=== PATIENT | female | born 1955 | race Caucasian/White ===

== ENCOUNTER → 2018-04-17 | Outpatient (CLI) | payer OTHER | END | disposition home or self-care (01) | LOC: CFH 10:01 | PROVIDERS: ATTEND Internal Medicine | DX: J43.2 Centrilobular emphysema (principal) | CPT/HCPCS: 71250 ==

== ENCOUNTER 2019-07-24 11:03 | Inpatient (IN) | payer OTHER ==
[~2019-07-24] VITALS: Ht 160 cm; Wt 58.5 kg
[2019-07-24] MEDS ORDERED: SODIUM CHLORIDE 0.9% 1,000ML IVBOLUS ONE (11:30)
[2019-07-24] MEDS ORDERED: ASPIRIN 81 MG TABLET CHEW PO ONE (11:30)
[2019-07-24] MEDS ORDERED: ADENOSINE 6 MG/2 ML IVPush ONE (11:30)
[2019-07-24] MEDS ORDERED: SODIUM CHLORIDE FLUSH 10ML SYR IVF ONE (11:30)
[2019-07-24] MEDS ORDERED: DILTIAZEM 5 MG/ML, 5ML ONE ×2 (11:34→13:40)
[2019-07-24] MEDS ORDERED: ASPIRIN 81 MG TABLET CHEW ONE (11:38)
[2019-07-24 11:51] LABS: BASOPHILS # (AUTO) 0.03 x10^3/uL (0-0.1); BASOPHILS % (AUTO) 0 % (0-1); EOSINOPHILS # (AUTO) 0.03 x10^3/uL (0-0.4); EOSINOPHILS % (AUTO) 0 % (1-7); LYMPHOCYTES # (AUTO) 0.64 x10^3/uL (1-3.4); LYMPHOCYTES % (AUTO) 9 % (22-44); MD NO; MEAN CORPUSCULAR HGB CONC 33.4 g/dL (32.4-35.8); MEAN CORPUSCULAR VOLUME 101.9 fL (80-100); MEAN PLATELET VOLUME 8.9 fL (7.4-10.4); MONOCYTES # (AUTO) 0.49 x10^3/uL (0.2-0.8); MONOCYTES % (AUTO) 7 % (2-9); NEUTROPHILS # (AUTO) 5.74 x10^3/uL (1.8-6.8); NEUTROPHILS % (AUTO) 83 % (42-75); PLATELET COUNT 186 x10^3/uL (130-400); RED BLOOD COUNT 4.94 x10^6/uL (3.82-5.3); RED CELL DISTRIBUTION WIDTH 13.9 % (9.6-15.2)
--- NOTE | 2019-07-24 11:52 | NUR ---
THIS IS A 64 YO F SENT FROM PRIMARY CARE FOR SOB AND BILATERAL LOWER LEG SWEELING. PATIENT IS ON 3L OF OXYGEN WHICH IS WHAT SHE WEARS AT HOME. RESPIRATIONS ARE EVEN AND UNLABORED. PATIENT IS IN NO ACUTE DISTRESS. PATIENT PLACED ON MONITORS. RESTING ON GURNEY WITH CALL LIGHT IN REACH. DENIES FURTHER NEEDS AT THIS TIME.
[2019-07-24] MEDS ORDERED: HEPARIN 5,000 UNITS/ML, 1ML ONE (11:58)
[2019-07-24] MEDS ORDERED: HEPARIN 25,000 UNITS/500ML PMX 500 ML ONE (11:59)
[2019-07-24] MEDS ORDERED: HEPARIN 5,000 UNITS/ML, 1ML IV ONE (12:00)
[2019-07-24] MEDS ORDERED: HEPARIN 5,000 UNITS/ML, 1ML IV PRN (12:00)
[2019-07-24] MEDS ORDERED: DILTIAZEM 5 MG/ML, 5ML IVPush ONE ×2 (12:00→14:00)
[2019-07-24] MEDS ORDERED: HEPARIN 25,000 UNITS/500ML PMX 500 ML IV PRN ×2 (12:00→16:30)
[2019-07-24] MEDS ORDERED: DIGOXIN 0.25 MG/ML, 2ML IVPush ONE (12:00)
[2019-07-24] MEDS ORDERED: DILTIAZEM 125 MG in SODIUM CHLORIDE 0.9% 100 ML IV SCH ×2 (12:01→15:30)
[2019-07-24 12:07] LABS: ALBUMIN 3.5 g/dL (3.4-5.0); ANION GAP 8 mmol/L (5-15); CHLORIDE 93 mmol/L (98-107)
[2019-07-24 12:09] LABS: ALANINE AMINOTRANSFERASE 40 U/L (12-78); CREATININE 0.75 mg/dL (0.55-1.02)
[2019-07-24 12:14] LABS: ALKALINE PHOSPHATASE 71 U/L (45-117); BILIRUBIN,TOTAL 1.1 mg/dL (0.2-1.0); T4 (THYROXINE) 11.5 mcg/dL (4.8-13.9); TOTAL PROTEIN 7.3 g/dL (6.4-8.2); TROPONIN I 0.033 ng/mL (0.000-0.045)
[2019-07-24] MEDS ORDERED: FUROSEMIDE 40 MG/4 ML ONE (12:16)
[2019-07-24] MEDS ORDERED: ALBUTEROL/IPRATROPIUM 2.5MG/0.5MG, 3 ML NPPB ONE (12:30)
[2019-07-24] MEDS ORDERED: FUROSEMIDE 40 MG/4 ML IV ONE (12:30)
--- NOTE | 2019-07-24 12:32 | NUR ---
TASK R: PT DICATED PER MAR. PT TOLERATED WELL.
--- NOTE | 2019-07-24 12:59 | NUR ---
TASK RN NOTE: PT ASSISTED TO VOID WITH BSC, NOW BACK IN BED. ALL MONITORS IN PLACE. PT A&O, RESPS EVEN AND UNLABORED. PT DENIES PAIN. RT AT BEDSIDE FOR TX.
--- NOTE | 2019-07-24 13:45 | NUR ---
TASK RN NOTE: PT UP TO [facility] [place] TO [place]ID, BACK IN BED, ALL MONITORS MAINTAINED. PT'S HR IS 150'S AFIB (SUSTAINED) AFTER SECOND TRIP TO [facility] [place]. MD TO INFORMED. INFORMED DILTIAZEM DRIP HAS NOT BEEN INITIATED YET. ORDERED 20 MG DILTIAZEM IV PUSH, AND INSTRUCTED RN TO START DILTIAZEM DRIP AFTER IV PUSH DOSE. DILTIAZEM DRIP REQUESTED FROM PHARMACY. DILTIAZEM PUSH DOSE ADMINISTERED SLOWLY OVER 5 MIN THROUGH PIV TO RIGHT FOREARM. PT A&O, RESPS EVEN, MILDLY LABORED. PT DENIES PAIN. HEPARIN GTT RUNNING AT 700U/HR THROUGH PIV IN LEFT AC. Addendum: 07/24/19 at 1349 by USHA TASK RN NOTE: PT UP TO [facility] AGAIN TO VOID, BACK IN BED, ALL MONITORS MAINTAINED. PT'S HR IS 150'S AFIB (SUSTAINED) AFTER SECOND TRIP TO [facility] [place]. MD TO INFORMED. INFORMED DILTIAZEM DRIP HAS NOT BEEN INITIATED YET. ORDERED 20 MG DILTIAZEM IV PUSH, AND INSTRUCTED RN TO START DILTIAZEM DRIP AFTER IV PUSH DOSE. DILTIAZEM DRIP REQUESTED FROM PHARMACY. DILTIAZEM PUSH DOSE ADMINISTERED SLOWLY OVER 5 MIN THROUGH PIV TO RIGHT FOREARM. PT A&O, RESPS EVEN, MILDLY LABORED. MD TO AT BEDSIDE, FAMILY AT BEDSIDE. PT DENIES PAIN. HEPARIN GTT RUNNING AT 700U/HR THROUGH PIV IN LEFT AC.
--- NOTE | 2019-07-24 13:50 | NUR ---
late entry d/t patient care: report given to primary RNs Patrick.
--- NOTE | 2019-07-24 14:30 | NUR ---
break RN note: report received from LENI Tabor. pt resting on gurney, resps even and unlabored. pt denies pain. pt states she has been sob for weeks, states she does not feel much improvement since arrival but does not feel any worse. pt able to speak in full sentences without difficulty. pt is afib rate 90's on dish maker, no ectopy noted. diltiazem gtt running at 10mg/hr, started by LENI Tabor prior to lunch break. heparin drip infusing at 700U/hr (starting rate). call light in reach. all monitors in place. awaiting admit room assingment and dispo at this time.
[2019-07-24] MEDS ORDERED: MULTIVITAMIN PO (14:51)
[2019-07-24] MEDS ORDERED: ALBUTEROL INHALER INH (14:51)
[2019-07-24] MEDS ORDERED: FLUOXETINE PO (14:51)
[2019-07-24] MEDS ORDERED: POTASSIUM PO (14:51)
[2019-07-24] MEDS ORDERED: ENALAPRIL PO (14:51)
[2019-07-24] MEDS ORDERED: TRILOGY INHALER INH (14:51)
[2019-07-24] MEDS ORDERED: VERAPAMIL PO (14:51)
[2019-07-24] MEDS ORDERED: OMEPRAZOLE PO (14:51)
[2019-07-24] MEDS ORDERED: IRON PO (14:51)
[2019-07-24] MEDS ORDERED: LASIX PO (14:51)
--- NOTE | 2019-07-24 15:05 | NUR ---
report given to primary RN Ivy. hospitalist Baldomero at bedside speaking with patient and family. pt is afib, rate 80-90s on telemetry monitor. leydi. pt gave this RN list of home meds but could not remember exact doseages. list of home meds with doseages obtained from pt's pharmacy ([facility] on [facility]), list given to primary LENI Haynes and hospitalist Baldomero. pt awaiting cardiac tele bed assignment and transport at this time.
[2019-07-24] MEDS ORDERED: ALBU18HF INH (15:12)
[2019-07-24] MEDS ORDERED: ESTR1TAB15 PO (15:12)
--- NOTE | 2019-07-24 15:14 | NUR ---
PATIENT PLACED ON BED LOPEZ.
[2019-07-24] MEDS ORDERED: ENALAPRILAT 1.25 MG/ML, 2ML IVPush PRN (15:30)
[2019-07-24] MEDS ORDERED: NICOTINE 21 MG/24 HR PATCH.TD24 TD SCH (15:30)
[2019-07-24] MEDS ORDERED: ACETAMINOPHEN 325 MG TABLET PO PRN (15:30)
[2019-07-24] MEDS ORDERED: BISACODYL 10 MG SUPP PR PRN (15:30)
[2019-07-24] MEDS ORDERED: ONDANSETRON ODT 4 MG PO PRN (15:30)
[2019-07-24] MEDS ORDERED: MAGNESIUM SULFATE PMX 4GM/100M 100 ML IV ONE (15:30)
[2019-07-24] MEDS ORDERED: ONDANSETRON 2MG/ML, 2ML IVPush PRN (15:30)
[2019-07-24] MEDS ORDERED: POLYETHYLENE GLYCOL 17 GM PACKET PO PRN (15:30)
[2019-07-24] MEDS ORDERED: DOCUSATE 100 MG CAPSULE PO PRN (15:30)
--- NOTE | 2019-07-24 15:48 | NUR ---
DIET TRAY DELIVERED.
--- NOTE | 2019-07-24 15:59 | NUR ---
REPORT GIVEN TO DENNISE FARRAR.
--- NOTE | 2019-07-24 15:59 | NUR ---
PATIENT ASSISTED ON BEDPAN
--- NOTE | 2019-07-24 16:02 | NUR ---
HR 140'S AFTER USING BEDPAN.
[2019-07-24] MEDS ORDERED: ALBUTEROL/IPRATROPIUM 2.5MG/0.5MG, 3 ML ONE (16:21)
[2019-07-24] MEDS ORDERED: ALBUTEROL SULFATE 2.5MG/0.5ML ONE (16:22)
[2019-07-24] MEDS: ALBUTEROL/IPRATROPIUM 2.5MG/0.5MG, 3 ML NPPB SCH (19:46)
[2019-07-24] MEDS: BUDESONIDE 0.5 MG/2 ML INHA INH SCH (19:46)
[2019-07-24 20:00] VITALS: BP 111/73
[2019-07-24] MEDS: methylPREDNISolone SOD SUCC 125 MG/2 ML IVPush SCH (20:02)
[2019-07-24] MEDS: HEPARIN 5,000 UNITS/ML, 1ML IV PRN (20:02)
[2019-07-24 22:20] LABS: MICROSCOPIC NOT IND
[2019-07-24 22:33] LABS: CULTURE INDICATED? NO
[2019-07-25 00:15] VITALS: BP 110/73
[2019-07-25 02:32] LABS: MEAN CORPUSCULAR HEMOGLOBIN 34.1 pg (27.0-34.8); MEAN CORPUSCULAR HGB CONC 32.7 g/dL (32.4-35.8); MEAN CORPUSCULAR VOLUME 104.2 fL (80-100); MEAN PLATELET VOLUME 8.9 fL (7.4-10.4); PLATELET COUNT 160 x10^3/uL (130-400); RED BLOOD COUNT 4.17 x10^6/uL (3.82-5.3); RED CELL DISTRIBUTION WIDTH 13.9 % (9.6-15.2)
[2019-07-25 02:42] LABS: ALANINE AMINOTRANSFERASE 32 U/L (12-78); ALBUMIN 2.8 g/dL (3.4-5.0); ANION GAP 7 mmol/L (5-15); CALCIUM 8.1 mg/dL (8.5-10.1); CHLORIDE 98 mmol/L (98-107); CREATININE 0.71 mg/dL (0.55-1.02)
[2019-07-25 02:44] LABS: ALKALINE PHOSPHATASE 58 U/L (45-117); BILIRUBIN,TOTAL 0.7 mg/dL (0.2-1.0)
[2019-07-25 02:57] LABS: BASOPHILS % (AUTO) 0 % (0-1); EOSINOPHILS % (AUTO) 0 % (1-7); LYMPHOCYTES % (AUTO) 2 % (22-44); MD SCAN; MONOCYTES # (AUTO) 0.07 x10^3/uL (0.2-0.8); MONOCYTES % (AUTO) 2 % (2-9); NEUTROPHILS # (AUTO) 3.98 x10^3/uL (1.8-6.8); NEUTROPHILS % (AUTO) 96 % (42-75)
[2019-07-25] MEDS: methylPREDNISolone SOD SUCC 125 MG/2 ML IVPush SCH ×3 (04:19→17:34)
[2019-07-25] MEDS: ALBUTEROL/IPRATROPIUM 2.5MG/0.5MG, 3 ML NPPB SCH ×4 (06:45→20:30)
[2019-07-25 07:04] VITALS: BP 145/80
[2019-07-25] MEDS: BUDESONIDE 0.5 MG/2 ML INHA INH SCH ×2 (08:40→20:30)
[2019-07-25] MEDS ORDERED: FUROSEMIDE 40 MG/4 ML IV ONE ×2 (09:30→17:30)
[2019-07-25] MEDS ORDERED: POTASSIUM CHLORIDE 20 MEQ TAB.ER.PRT PO ONE (09:30)
[2019-07-25] MEDS: OMEPRAZOLE 20 MG CAPSULE.DR PO SCH (10:25)
[2019-07-25] MEDS: DILTIAZEM 240 MG CAP.ER.24H PO SCH (10:26)
[2019-07-25] MEDS: MULTIVITAMIN 1 TABLET PO SCH (10:26)
[2019-07-25] MEDS: FLUOXETINE HCL 20 MG CAPSULE PO SCH (10:26)
[2019-07-25 13:56] VITALS: BP 128/80
[2019-07-25] MEDS ORDERED: DIPHENHYDRAMINE 25 MG CAPSULE PO PRN (15:00)
[2019-07-25] MEDS ORDERED: DIPHENHYDRAMINE 25 MG CAPSULE PO ONE (15:30)
[2019-07-25] MEDS ORDERED: FUROSEMIDE 40 MG/4 ML ONE (17:19)
[2019-07-25] MEDS ORDERED: ALBUMIN HUMAN 25% 100 ML ONE (18:16)
[2019-07-25] MEDS ORDERED: ALBUMIN HUMAN 25% 100 ML IV ONE (18:30)
[2019-07-25] MEDS: ENALAPRIL 20MG TABLET PO SCH (20:36)
[2019-07-26] MEDS: methylPREDNISolone SOD SUCC 125 MG/2 ML IVPush SCH ×4 (01:17→18:01)
[2019-07-26 04:31] LABS: MEAN CORPUSCULAR HEMOGLOBIN 34.1 pg (27.0-34.8); MEAN CORPUSCULAR HGB CONC 32.6 g/dL (32.4-35.8); MEAN CORPUSCULAR VOLUME 104.6 fL (80-100); MEAN PLATELET VOLUME 8.7 fL (7.4-10.4); PLATELET COUNT 172 x10^3/uL (130-400); RED BLOOD COUNT 4.34 x10^6/uL (3.82-5.3); RED CELL DISTRIBUTION WIDTH 14.1 % (9.6-15.2)
[2019-07-26 04:40] LABS: ANION GAP 4 mmol/L (5-15); CALCIUM 8.1 mg/dL (8.5-10.1); CHLORIDE 95 mmol/L (98-107)
[2019-07-26 04:41] LABS: CREATININE 0.62 mg/dL (0.55-1.02)
[2019-07-26 04:52] LABS: BASOPHILS # (AUTO) 0.03 x10^3/uL (0-0.1); BASOPHILS % (AUTO) 0 % (0-1); EOSINOPHILS # (AUTO) 0.07 x10^3/uL (0-0.4); EOSINOPHILS % (AUTO) 1 % (1-7); LYMPHOCYTES # (AUTO) 0.12 x10^3/uL (1-3.4); LYMPHOCYTES % (AUTO) 1 % (22-44); MD SCAN; MONOCYTES # (AUTO) 0.35 x10^3/uL (0.2-0.8); MONOCYTES % (AUTO) 3 % (2-9); NEUTROPHILS # (AUTO) 12.82 x10^3/uL (1.8-6.8); NEUTROPHILS % (AUTO) 96 % (42-75)
[2019-07-26] MEDS: HEPARIN 5,000 UNITS/ML, 1ML IV PRN (06:14)
[2019-07-26] MEDS: ALBUTEROL/IPRATROPIUM 2.5MG/0.5MG, 3 ML NPPB SCH ×5 (07:00→23:52)
[2019-07-26] MEDS: MULTIVITAMIN 1 TABLET PO SCH (08:46)
[2019-07-26] MEDS: OMEPRAZOLE 20 MG CAPSULE.DR PO SCH (08:46)
[2019-07-26] MEDS: FLUOXETINE HCL 20 MG CAPSULE PO SCH (08:46)
[2019-07-26] MEDS: DILTIAZEM 240 MG CAP.ER.24H PO SCH (08:46)
[2019-07-26] MEDS: ENALAPRIL 20MG TABLET PO SCH ×2 (08:46→20:01)
[2019-07-26] MEDS: BUDESONIDE 0.5 MG/2 ML INHA INH SCH ×2 (09:00→20:07)
[2019-07-26] MEDS ORDERED: FUROSEMIDE 40 MG/4 ML IV SCH (09:00)
[2019-07-26] MEDS: LABETALOL 5MG/ML, 20ML IVPush PRN (12:29)
[2019-07-26] MEDS ORDERED: Enoxaparin 1 mg/kg protocol SQ SCH (14:00)
[2019-07-26] MEDS ORDERED: POTASSIUM CHLORIDE 20 MEQ TAB.ER.PRT PO ONE (14:00)
[2019-07-26] MEDS: ENOXAPARIN 60 MG/0.6 ML SQ SCH (18:01)
[2019-07-26] MEDS: FUROSEMIDE 20 MG/2 ML IV SCH (20:01)
[2019-07-27] MEDS: methylPREDNISolone SOD SUCC 125 MG/2 ML IVPush SCH ×4 (01:04→18:23)
[2019-07-27] MEDS: ALBUTEROL/IPRATROPIUM 2.5MG/0.5MG, 3 ML NPPB SCH ×6 (03:00→23:00)
[2019-07-27] MEDS: ENOXAPARIN 60 MG/0.6 ML SQ SCH ×2 (06:00→20:27)
[2019-07-27] MEDS: FUROSEMIDE 20 MG/2 ML IV SCH (06:00)
[2019-07-27] MEDS: BUDESONIDE 0.5 MG/2 ML INHA INH SCH ×2 (07:35→21:00)
[2019-07-27] MEDS: MULTIVITAMIN 1 TABLET PO SCH (09:56)
[2019-07-27] MEDS: OMEPRAZOLE 20 MG CAPSULE.DR PO SCH (09:56)
[2019-07-27] MEDS: DILTIAZEM 240 MG CAP.ER.24H PO SCH (09:56)
[2019-07-27] MEDS: FLUOXETINE HCL 20 MG CAPSULE PO SCH (09:56)
[2019-07-27] MEDS: AZITHROMYCIN 500 MG TABLET PO SCH (10:00)
[2019-07-27] MEDS ORDERED: FUROSEMIDE 20 MG/2 ML ONE (10:10)
[2019-07-27] MEDS ORDERED: FUROSEMIDE 20 MG/2 ML IV ONE (10:30)
[2019-07-27] MEDS ORDERED: METOPROLOL 1 MG/ML, 5ML ONE (11:08)
[2019-07-27] MEDS: ENALAPRIL 20MG TABLET PO SCH ×2 (11:22→20:31)
[2019-07-27] MEDS ORDERED: METOPROLOL 1 MG/ML, 5ML IVPush ONE (11:30)
[2019-07-27] MEDS: FUROSEMIDE 40 MG/4 ML IV SCH (16:59)
[2019-07-27] MEDS ORDERED: FUROSEMIDE 40 MG/4 ML IV SCH (17:00)
[2019-07-27] MEDS ORDERED: METOPROLOL 1 MG/ML, 5ML IVPush PRN (18:30)
[2019-07-28] MEDS: methylPREDNISolone SOD SUCC 125 MG/2 ML IVPush SCH ×4 (00:17→21:32)
[2019-07-28] MEDS: ALBUTEROL/IPRATROPIUM 2.5MG/0.5MG, 3 ML NPPB SCH ×6 (02:27→22:32)
[2019-07-28 05:11] LABS: MEAN CORPUSCULAR HEMOGLOBIN 33.9 pg (27.0-34.8); MEAN CORPUSCULAR HGB CONC 32.2 g/dL (32.4-35.8); MEAN CORPUSCULAR VOLUME 105.4 fL (80-100); MEAN PLATELET VOLUME 9.1 fL (7.4-10.4); PLATELET COUNT 173 x10^3/uL (130-400); RED BLOOD COUNT 4.52 x10^6/uL (3.82-5.3); RED CELL DISTRIBUTION WIDTH 14.5 % (9.6-15.2)
[2019-07-28 05:16] LABS: CALCIUM 8.2 mg/dL (8.5-10.1); CHLORIDE 92 mmol/L (98-107)
[2019-07-28 05:17] LABS: CREATININE 0.58 mg/dL (0.55-1.02)
[2019-07-28 05:50] LABS: ANION GAP 3 mmol/L (5-15)
[2019-07-28 05:54] LABS: BASOPHILS % (AUTO) 0 % (0-1); EOSINOPHILS # (AUTO) 0.01 x10^3/uL (0-0.4); EOSINOPHILS % (AUTO) 0 % (1-7); LYMPHOCYTES # (AUTO) 0.07 x10^3/uL (1-3.4); LYMPHOCYTES % (AUTO) 1 % (22-44); MD SCAN; MONOCYTES # (AUTO) 0.32 x10^3/uL (0.2-0.8); MONOCYTES % (AUTO) 3 % (2-9); NEUTROPHILS # (AUTO) 9.82 x10^3/uL (1.8-6.8); NEUTROPHILS % (AUTO) 96 % (42-75)
[2019-07-28] MEDS: BUDESONIDE 0.5 MG/2 ML INHA INH SCH ×2 (07:40→19:17)
[2019-07-28] MEDS ORDERED: POTASSIUM CHLORIDE 20 MEQ TAB.ER.PRT ONE (07:48)
[2019-07-28] MEDS: POTASSIUM CHLORIDE 20 MEQ TAB.ER.PRT PO SCH ×2 (07:52→17:09)
[2019-07-28] MEDS: FUROSEMIDE 40 MG/4 ML IV SCH ×2 (07:52→17:09)
[2019-07-28] MEDS: ENOXAPARIN 60 MG/0.6 ML SQ SCH ×2 (07:52→21:32)
[2019-07-28] MEDS: AZITHROMYCIN 500 MG TABLET PO SCH (07:53)
[2019-07-28] MEDS: OMEPRAZOLE 20 MG CAPSULE.DR PO SCH (07:53)
[2019-07-28] MEDS: MULTIVITAMIN 1 TABLET PO SCH (07:53)
[2019-07-28] MEDS: ENALAPRIL 20MG TABLET PO SCH ×2 (07:53→21:33)
[2019-07-28] MEDS: DILTIAZEM 240 MG CAP.ER.24H PO SCH (07:53)
[2019-07-28] MEDS: FLUOXETINE HCL 20 MG CAPSULE PO SCH (07:53)
[2019-07-28 13:38] LABS: TROPONIN I 0.065 ng/mL (0.000-0.045)
[2019-07-29] MEDS: methylPREDNISolone SOD SUCC 125 MG/2 ML IVPush SCH ×4 (02:50→20:29)
[2019-07-29] MEDS: ALBUTEROL/IPRATROPIUM 2.5MG/0.5MG, 3 ML NPPB SCH ×6 (03:45→23:38)
[2019-07-29 04:59] LABS: CALCIUM 8.2 mg/dL (8.5-10.1); CHLORIDE 91 mmol/L (98-107); CREATININE 0.53 mg/dL (0.55-1.02)
[2019-07-29 05:16] LABS: ANION GAP 4 mmol/L (5-15)
[2019-07-29] MEDS: FUROSEMIDE 40 MG/4 ML IV SCH (07:30)
[2019-07-29] MEDS: AZITHROMYCIN 500 MG TABLET PO SCH (07:40)
[2019-07-29] MEDS: DILTIAZEM 240 MG CAP.ER.24H PO SCH (07:40)
[2019-07-29] MEDS: ENOXAPARIN 60 MG/0.6 ML SQ SCH ×2 (07:41→20:29)
[2019-07-29] MEDS: BUDESONIDE 0.5 MG/2 ML INHA INH SCH ×2 (08:06→19:11)
[2019-07-29] MEDS: LABETALOL 5MG/ML, 20ML IVPush PRN (08:27)
[2019-07-29] MEDS: POTASSIUM CHLORIDE 20 MEQ TAB.ER.PRT PO SCH ×2 (08:28→17:25)
[2019-07-29] MEDS: MULTIVITAMIN 1 TABLET PO SCH (09:41)
[2019-07-29] MEDS: OMEPRAZOLE 20 MG CAPSULE.DR PO SCH (09:41)
[2019-07-29] MEDS: FLUOXETINE HCL 20 MG CAPSULE PO SCH (09:41)
[2019-07-29] MEDS: ENALAPRIL 20MG TABLET PO SCH ×2 (09:42→20:30)
[2019-07-29] MEDS ORDERED: AcetaZOLAMIDE INJ 500 MG ONE (13:34)
[2019-07-29] MEDS ORDERED: AcetaZOLAMIDE INJ 500 MG IVPush ONE (14:00)
[2019-07-29] MEDS: AcetaZOLAMIDE INJ 500 MG IVPush SCH (20:30)
[2019-07-30] MEDS: methylPREDNISolone SOD SUCC 125 MG/2 ML IVPush SCH ×4 (02:56→20:34)
[2019-07-30] MEDS: ALBUTEROL/IPRATROPIUM 2.5MG/0.5MG, 3 ML NPPB SCH ×6 (03:49→23:00)
[2019-07-30] MEDS: BUDESONIDE 0.5 MG/2 ML INHA INH SCH ×2 (07:51→20:27)
[2019-07-30] MEDS: ENOXAPARIN 60 MG/0.6 ML SQ SCH (08:35)
[2019-07-30] MEDS: AcetaZOLAMIDE INJ 500 MG IVPush SCH (08:36)
[2019-07-30] MEDS: FLUOXETINE HCL 20 MG CAPSULE PO SCH (08:37)
[2019-07-30] MEDS: MULTIVITAMIN 1 TABLET PO SCH (08:37)
[2019-07-30] MEDS: OMEPRAZOLE 20 MG CAPSULE.DR PO SCH (08:37)
[2019-07-30] MEDS: DILTIAZEM 240 MG CAP.ER.24H PO SCH (08:37)
[2019-07-30] MEDS: ENALAPRIL 20MG TABLET PO SCH (08:40)
[2019-07-30] MEDS: AZITHROMYCIN 500 MG TABLET PO SCH (08:40)
[2019-07-30] MEDS ORDERED: AMIODARONE 150 MG in DEXTROSE 5% 100 ML IV ONE (10:30)
[2019-07-30] MEDS ORDERED: MAGNESIUM SULFATE PMX 2GM/50ML 50 ML IV ONE (10:30)
[2019-07-30] MEDS ORDERED: FILTER 0.22 MICRON IV PRN (11:00)
[2019-07-30] MEDS: AMIODARONE 900 MG in DEXTROSE 5% 482 ML IV PRN (11:05)
[2019-07-30] MEDS ORDERED: NICOTINE GUM 2 MG BC PRN (11:30)
[2019-07-30] MEDS ORDERED: FUROSEMIDE 20 MG TABLET PO SCH (17:00)
[2019-07-30] MEDS: APIXABAN 5 MG TABLET PO SCH (20:34)
[2019-07-31] MEDS: methylPREDNISolone SOD SUCC 125 MG/2 ML IVPush SCH ×4 (02:21→20:56)
[2019-07-31] MEDS ORDERED: ALBUTEROL SULFATE 2.5 MG/3 ML ONE ×2 (04:51→06:21)
[2019-07-31] MEDS: ALBUTEROL/IPRATROPIUM 2.5MG/0.5MG, 3 ML NPPB SCH ×6 (04:53→23:47)
[2019-07-31 05:27] LABS: ANION GAP 3 mmol/L (5-15); CALCIUM 8.7 mg/dL (8.5-10.1); CHLORIDE 94 mmol/L (98-107)
[2019-07-31 05:29] LABS: CREATININE 0.67 mg/dL (0.55-1.02)
[2019-07-31] MEDS ORDERED: IPRATROPIUM 0.5 MG/2.5 ML INHA ONE (06:21)
[2019-07-31] MEDS: BUDESONIDE 0.5 MG/2 ML INHA INH SCH ×2 (06:30→19:16)
[2019-07-31] MEDS: MULTIVITAMIN 1 TABLET PO SCH (08:22)
[2019-07-31] MEDS: POTASSIUM CHLORIDE 20 MEQ TAB.ER.PRT PO SCH ×2 (08:23→16:34)
[2019-07-31] MEDS: OMEPRAZOLE 20 MG CAPSULE.DR PO SCH (08:23)
[2019-07-31] MEDS: FLUOXETINE HCL 20 MG CAPSULE PO SCH (08:23)
[2019-07-31] MEDS: APIXABAN 5 MG TABLET PO SCH ×2 (08:23→20:55)
[2019-07-31] MEDS: AZITHROMYCIN 500 MG TABLET PO SCH (08:23)
[2019-07-31] MEDS ORDERED: DILTIAZEM 5 MG/ML, 5ML IVPush PRN (10:30)
[2019-07-31] MEDS: AMIODARONE 900 MG in DEXTROSE 5% 482 ML IV PRN ×2 (11:15→13:07)
[2019-07-31] MEDS: DILTIAZEM 5 MG/ML, 5ML IVPush PRN ×5 (12:19→22:11)
[2019-07-31] MEDS ORDERED: DIGOXIN 0.25 MG/ML, 2ML IVPush ONE (14:00)
[2019-08-01] MEDS: LABETALOL 20 MG/4 ML IVPush PRN ×2 (00:47→05:06)
[2019-08-01] MEDS: methylPREDNISolone SOD SUCC 125 MG/2 ML IVPush SCH ×5 (01:48→22:08)
[2019-08-01] MEDS: AMIODARONE 900 MG in DEXTROSE 5% 482 ML IV PRN ×3 (03:00→20:43)
[2019-08-01] MEDS ORDERED: FILTER 0.22 MICRON IV PRN (03:00)
[2019-08-01] MEDS: ALBUTEROL/IPRATROPIUM 2.5MG/0.5MG, 3 ML NPPB SCH ×6 (03:41→23:08)
[2019-08-01 04:35] LABS: CALCIUM 8.6 mg/dL (8.5-10.1)
[2019-08-01 04:36] LABS: CREATININE 0.58 mg/dL (0.55-1.02)
[2019-08-01 04:57] LABS: ANION GAP 2 mmol/L (5-15); CHLORIDE 97 mmol/L (98-107)
[2019-08-01] MEDS: BUDESONIDE 0.5 MG/2 ML INHA INH SCH ×2 (07:10→19:04)
[2019-08-01] MEDS: OMEPRAZOLE 20 MG CAPSULE.DR PO SCH (07:56)
[2019-08-01] MEDS: APIXABAN 5 MG TABLET PO SCH ×2 (07:56→20:34)
[2019-08-01] MEDS: FLUOXETINE HCL 20 MG CAPSULE PO SCH (07:56)
[2019-08-01] MEDS: AZITHROMYCIN 500 MG TABLET PO SCH (07:56)
[2019-08-01] MEDS: MULTIVITAMIN 1 TABLET PO SCH (07:56)
[2019-08-01] MEDS: DILTIAZEM 30 MG TABLET PO SCH ×3 (10:23→22:08)
[2019-08-01] MEDS ORDERED: AMIODARONE 900 MG in DEXTROSE 5% 482 ML IV PRN (10:30)
[2019-08-01] MEDS ORDERED: DILTIAZEM 5 MG/ML, 5ML IVPush PRN ×2 (16:00→18:00)
[2019-08-01] MEDS: FUROSEMIDE 20 MG/2 ML IV SCH (17:49)
[2019-08-01 19:26] VITALS: BP 143/98
[2019-08-01] MEDS ORDERED: ENALAPRILAT 1.25 MG/ML, 1ML ONE (22:31)
[2019-08-02 01:19] VITALS: BP 140/89
[2019-08-02] MEDS: ALBUTEROL/IPRATROPIUM 2.5MG/0.5MG, 3 ML NPPB SCH ×6 (02:46→19:23)
[2019-08-02] MEDS: DILTIAZEM 30 MG TABLET PO SCH (04:07)
[2019-08-02] MEDS: methylPREDNISolone SOD SUCC 125 MG/2 ML IVPush SCH ×4 (04:07→21:25)
[2019-08-02 06:08] LABS: BASOPHILS % (AUTO) 0 % (0-1); EOSINOPHILS # (AUTO) 0.02 x10^3/uL (0-0.4); EOSINOPHILS % (AUTO) 0 % (1-7); LYMPHOCYTES # (AUTO) 0.17 x10^3/uL (1-3.4); LYMPHOCYTES % (AUTO) 1 % (22-44); MD NO; MEAN CORPUSCULAR HEMOGLOBIN 33.6 pg (27.0-34.8); MEAN CORPUSCULAR HGB CONC 32.7 g/dL (32.4-35.8); MONOCYTES # (AUTO) 0.48 x10^3/uL (0.2-0.8); MONOCYTES % (AUTO) 4 % (2-9); NEUTROPHILS # (AUTO) 11.16 x10^3/uL (1.8-6.8); NEUTROPHILS % (AUTO) 94 % (42-75); PLATELET COUNT 177 x10^3/uL (130-400); RED BLOOD COUNT 4.99 x10^6/uL (3.82-5.3)
[2019-08-02 06:14] LABS: ANION GAP 5 mmol/L (5-15); CALCIUM 8.5 mg/dL (8.5-10.1); CHLORIDE 92 mmol/L (98-107)
[2019-08-02 06:19] LABS: CREATININE 0.77 mg/dL (0.55-1.02)
[2019-08-02] MEDS: BUDESONIDE 0.5 MG/2 ML INHA INH SCH ×2 (07:36→18:34)
[2019-08-02 08:15] VITALS: BP 149/102
[2019-08-02] MEDS: MULTIVITAMIN 1 TABLET PO SCH (08:56)
[2019-08-02] MEDS: AZITHROMYCIN 500 MG TABLET PO SCH (08:56)
[2019-08-02] MEDS: APIXABAN 5 MG TABLET PO SCH ×2 (08:56→21:25)
[2019-08-02] MEDS: FUROSEMIDE 20 MG/2 ML IV SCH ×2 (08:56→17:00)
[2019-08-02] MEDS: OMEPRAZOLE 20 MG CAPSULE.DR PO SCH (08:56)
[2019-08-02] MEDS: FLUOXETINE HCL 20 MG CAPSULE PO SCH (08:56)
[2019-08-02] MEDS ORDERED: FUROSEMIDE 20 MG/2 ML IV ONE (09:30)
[2019-08-02] MEDS: DILTIAZEM 125 MG in SODIUM CHLORIDE 0.9% 100 ML IV SCH (11:28)
[2019-08-02 12:43] VITALS: BP 135/93
[2019-08-02 18:48] VITALS: BP 149/88
[2019-08-03 00:30] VITALS: BP 149/95
[2019-08-03] MEDS: DILTIAZEM 125 MG in SODIUM CHLORIDE 0.9% 100 ML IV SCH ×3 (04:22→22:24)
[2019-08-03] MEDS: methylPREDNISolone SOD SUCC 125 MG/2 ML IVPush SCH ×4 (04:45→21:41)
[2019-08-03 05:38] LABS: BASOPHILS % (AUTO) 0 % (0-1); EOSINOPHILS % (AUTO) 0 % (1-7); LYMPHOCYTES # (AUTO) 0.18 x10^3/uL (1-3.4); LYMPHOCYTES % (AUTO) 2 % (22-44); MD NO; MEAN CORPUSCULAR HGB CONC 32.4 g/dL (32.4-35.8); MEAN CORPUSCULAR VOLUME 101.7 fL (80-100); MEAN PLATELET VOLUME 9.4 fL (7.4-10.4); MONOCYTES % (AUTO) 6 % (2-9); NEUTROPHILS # (AUTO) 11.36 x10^3/uL (1.8-6.8); NEUTROPHILS % (AUTO) 93 % (42-75); PLATELET COUNT 172 x10^3/uL (130-400); RED BLOOD COUNT 4.91 x10^6/uL (3.82-5.3); RED CELL DISTRIBUTION WIDTH 13.8 % (9.6-15.2)
[2019-08-03 05:43] LABS: CALCIUM 8.4 mg/dL (8.5-10.1); CHLORIDE 91 mmol/L (98-107)
[2019-08-03 05:46] LABS: ALANINE AMINOTRANSFERASE 73 U/L (12-78); ALKALINE PHOSPHATASE 49 U/L (45-117); BILIRUBIN,TOTAL 1.4 mg/dL (0.2-1.0); TOTAL PROTEIN 5.6 g/dL (6.4-8.2)
[2019-08-03 06:09] LABS: ANION GAP 2 mmol/L (5-15)
[2019-08-03] MEDS: ALBUTEROL/IPRATROPIUM 2.5MG/0.5MG, 3 ML NPPB SCH ×4 (07:00→19:12)
[2019-08-03 07:40] VITALS: BP 162/88
[2019-08-03] MEDS: BUDESONIDE 0.5 MG/2 ML INHA INH SCH ×2 (09:00→19:12)
[2019-08-03] MEDS: FUROSEMIDE 20 MG/2 ML IV SCH ×2 (09:09→17:39)
[2019-08-03] MEDS: OMEPRAZOLE 20 MG CAPSULE.DR PO SCH (09:09)
[2019-08-03] MEDS: AZITHROMYCIN 500 MG TABLET PO SCH (09:09)
[2019-08-03] MEDS: MULTIVITAMIN 1 TABLET PO SCH (09:09)
[2019-08-03] MEDS: APIXABAN 5 MG TABLET PO SCH ×2 (09:09→21:41)
[2019-08-03] MEDS: FLUOXETINE HCL 20 MG CAPSULE PO SCH (09:09)
[2019-08-03 14:00] VITALS: BP 152/88
[2019-08-03 19:50] VITALS: BP 133/81
[2019-08-04 00:17] VITALS: BP 146/93
[2019-08-04] MEDS: methylPREDNISolone SOD SUCC 125 MG/2 ML IVPush SCH ×4 (03:46→21:10)
[2019-08-04] MEDS: BUDESONIDE 0.5 MG/2 ML INHA INH SCH ×2 (07:35→08:00)
[2019-08-04] MEDS: ALBUTEROL/IPRATROPIUM 2.5MG/0.5MG, 3 ML NPPB SCH ×2 (07:35→08:00)
[2019-08-04] MEDS: OMEPRAZOLE 20 MG CAPSULE.DR PO SCH (10:03)
[2019-08-04] MEDS: MULTIVITAMIN 1 TABLET PO SCH (10:03)
[2019-08-04] MEDS: FLUOXETINE HCL 20 MG CAPSULE PO SCH (10:03)
[2019-08-04] MEDS: FUROSEMIDE 20 MG/2 ML IV SCH ×2 (10:04→17:30)
[2019-08-04] MEDS: AZITHROMYCIN 500 MG TABLET PO SCH (10:04)
[2019-08-04] MEDS: APIXABAN 5 MG TABLET PO SCH ×2 (10:04→21:10)
[2019-08-04] MEDS: DILTIAZEM 90 MG TABLET PO SCH ×4 (10:23→21:10)
[2019-08-04 10:47] LABS: MEAN CORPUSCULAR HEMOGLOBIN 33.2 pg (27.0-34.8); MEAN CORPUSCULAR HGB CONC 32.8 g/dL (32.4-35.8); MEAN CORPUSCULAR VOLUME 101.2 fL (80-100); MEAN PLATELET VOLUME 9.4 fL (7.4-10.4); PLATELET COUNT 172 x10^3/uL (130-400); RED BLOOD COUNT 5.02 x10^6/uL (3.82-5.3); RED CELL DISTRIBUTION WIDTH 13.7 % (9.6-15.2)
[2019-08-04 10:51] LABS: ANION GAP 7 mmol/L (5-15); CHLORIDE 85 mmol/L (98-107); CREATININE 0.75 mg/dL (0.55-1.02)
[2019-08-04 11:45] LABS: BASOPHILS # (AUTO) 0.01 x10^3/uL (0-0.1); BASOPHILS % (AUTO) 0 % (0-1); EOSINOPHILS % (AUTO) 0 % (1-7); LYMPHOCYTES # (AUTO) 0.17 x10^3/uL (1-3.4); LYMPHOCYTES % (AUTO) 1 % (22-44); MD SCAN; MONOCYTES # (AUTO) 0.34 x10^3/uL (0.2-0.8); MONOCYTES % (AUTO) 2 % (2-9); NEUTROPHILS # (AUTO) 14.06 x10^3/uL (1.8-6.8); NEUTROPHILS % (AUTO) 96 % (42-75)
[2019-08-04 14:57] VITALS: BP 147/68
[2019-08-04 18:42] VITALS: BP 133/72
[2019-08-04] MEDS: DILTIAZEM 125 MG in SODIUM CHLORIDE 0.9% 100 ML IV SCH ×2 (22:00→23:30)
[2019-08-05] MEDS: methylPREDNISolone SOD SUCC 125 MG/2 ML IVPush SCH ×2 (05:22→11:59)
[2019-08-05] MEDS: DILTIAZEM 90 MG TABLET PO SCH ×2 (05:23→12:00)
[2019-08-05 07:24] VITALS: BP 149/86
[2019-08-05] MEDS: ALBUTEROL/IPRATROPIUM 2.5MG/0.5MG, 3 ML NPPB SCH (07:35)
[2019-08-05] MEDS: BUDESONIDE 0.5 MG/2 ML INHA INH SCH (07:35)
[2019-08-05] MEDS: OMEPRAZOLE 20 MG CAPSULE.DR PO SCH (09:09)
[2019-08-05] MEDS: MULTIVITAMIN 1 TABLET PO SCH (09:09)
[2019-08-05] MEDS: FLUOXETINE HCL 20 MG CAPSULE PO SCH (09:09)
[2019-08-05] MEDS: APIXABAN 5 MG TABLET PO SCH (09:10)
[2019-08-05] MEDS: FUROSEMIDE 20 MG/2 ML IV SCH (09:10)
[2019-08-05] MEDS: AZITHROMYCIN 500 MG TABLET PO SCH (09:10)
[2019-08-05] MEDS ORDERED: PRED10TA14 PO (09:45)
[2019-08-05] MEDS ORDERED: FURO-92 PO (09:45)
[2019-08-05] MEDS ORDERED: FLUT1DIS3 INH (09:45)
[2019-08-05] MEDS ORDERED: POTA20TA6 PO (09:45)
[2019-08-05] MEDS ORDERED: TIOT18CA INH (09:45)
[2019-08-05] MEDS ORDERED: IPRA3AMP30 NPPB (09:45)
[2019-08-05] MEDS ORDERED: DILT360T PO (09:45)
[2019-08-05] MEDS ORDERED: NICO2GUM41 BC (09:45)
[2019-08-05] MEDS ORDERED: APIX5TAB PO (09:45)
[2019-08-05] MEDS: DILTIAZEM 125 MG in SODIUM CHLORIDE 0.9% 100 ML IV SCH (12:03)
[2019-08-05 13:57] VITALS: BP 144/83
== END 2019-08-05 16:00 | disposition left against medical advice (07) | DRG 291 ==
LOC: ED 13:22 → EDIP 14:43 → 5SO 16:13 → CSU 07-25 17:11 → ICU 07-27 07:41 → 5SO 08-01 16:48 → DCLOUNGE 08-05 15:45
PROVIDERS: ADMIT Internal Medicine; ATTEND Internal Medicine
PROC: 5A09357 Assistance with Respiratory Ventilation, Less than 24 Consecutive Hours, Continuous Positive Airway Pressure (ICD-10-PCS; principal; 2019-07-29)
PROC: 5A09357 Assistance with Respiratory Ventilation, Less than 24 Consecutive Hours, Continuous Positive Airway Pressure (ICD-10-PCS; 2019-07-31)
DX: I11.0 Hypertensive heart disease with heart failure (principal); J96.21 Acute and chronic respiratory failure with hypoxia; J96.22 Acute and chronic respiratory failure with hypercapnia; E87.1 Hypo-osmolality and hyponatremia; E87.2 Acidosis; I24.8 Other forms of acute ischemic heart disease; D75.1 Secondary polycythemia; I50.33 Acute on chronic diastolic (congestive) heart failure; E83.42 Hypomagnesemia; E87.6 Hypokalemia; F17.210 Nicotine dependence, cigarettes, uncomplicated; I08.1 Rheumatic disorders of both mitral and tricuspid valves; I27.29 Other secondary pulmonary hypertension; I27.81 Cor pulmonale (chronic); I45.10 Unspecified right bundle-branch block; I48.91 Unspecified atrial fibrillation; J43.9 Emphysema, unspecified; Z51.5 Encounter for palliative care; Z66 Do not resuscitate; Z82.49 Family history of ischemic heart disease and other diseases of the circulatory system; Z90.710 Acquired absence of both cervix and uterus; Z99.81 Dependence on supplemental oxygen
CPT/HCPCS: 36415; 36600; 99285; J7620; J7626; 71045; 71250; 80048; 80053; 81003; 82803; 83605; 83735; 83880; 84100; 84436; 84443; 84484; 85025; 85520; 87040; 87081; 93005; 93306; 93970; 94640; 94660; G0378; J1644; J1650; J1940; P9047; J0282; J1120; J1160; J2930; J3475; J3490; J7030; J7060; J7512; Q0163

== ENCOUNTER → 2019-09-14 | Outpatient (CLI) | payer OTHER ==
[~2019-09-14] MED LIST: ALBU18HF INH; ALBUTEROL INHALER INH; APIX5TAB PO; DILT360T PO; ENALAPRIL PO; ESTR1TAB15 PO; FLUOXETINE PO; FLUT1DIS3 INH; FURO-92 PO; IPRA3AMP30 NPPB; IRON PO; LASIX PO; MULTIVITAMIN PO; NICO2GUM41 BC; OMEPRAZOLE PO; POTA20TA6 PO; POTASSIUM PO; PRED10TA14 PO; TIOT18CA INH; TRILOGY INHALER INH; VERAPAMIL PO
== END | disposition home or self-care (01) ==
LOC: CFH 10:05
PROVIDERS: ATTEND Genetic Counselor, MS
DX: Z12.31 Encounter for screening mammogram for malignant neoplasm of breast (principal)
CPT/HCPCS: 77067

== ENCOUNTER → 2020-05-12 | Outpatient (CLI) | payer OTHER | END | disposition home or self-care (01) | LOC: CVU 08:47 | PROVIDERS: ATTEND Internal Medicine Cardiovascular Disease | DX: I08.1 Rheumatic disorders of both mitral and tricuspid valves (principal); I65.23 Occlusion and stenosis of bilateral carotid arteries; I10 Essential (primary) hypertension; R09.89 Other specified symptoms and signs involving the circulatory and respiratory systems | CPT/HCPCS: 93306; 93880 ==

== ENCOUNTER → 2020-05-14 | Outpatient (CLI) | payer OTHER | END | disposition home or self-care (01) | LOC: CFH 14:09 | PROVIDERS: ATTEND Internal Medicine | DX: Z12.2 Encounter for screening for malignant neoplasm of respiratory organs (principal); J43.9 Emphysema, unspecified; I25.10 Atherosclerotic heart disease of native coronary artery without angina pectoris; R91.1 Solitary pulmonary nodule; Z87.891 Personal history of nicotine dependence | CPT/HCPCS: G0297 ==

== ENCOUNTER 2020-07-20 11:36 | Inpatient (IN) | payer OTHER ==
[~2020-07-20] VITALS: Ht 167.6 cm; Wt 63.1 kg
--- NOTE | 2020-07-20 11:53 | NUR ---
PER EMS PT HAS SOB AND WAS SATING 75% ON HOME O2 AT 3 LPM. PT SPEAKING IN ONE WORD SENTENCES. PER EMS PT HAS A HX OF CHF. PT USE OF ACCESSSORY MUSCLES NOTED WHEN PT BREATHES.
[2020-07-20] MEDS ORDERED: ALBUTEROL SULFATE 2.5 MG/3 ML ONE (11:58)
[2020-07-20] MEDS ORDERED: methylPREDNISolone SOD SUCC 125 MG/2 ML ONE (11:58)
[2020-07-20] MEDS ORDERED: MAGNESIUM SULFATE PMX 2GM/50ML 50 ML ONE (11:58)
[2020-07-20] MEDS ORDERED: PLEASE ENTER HEIGHT AND WEIGHT MC SCH (12:00)
[2020-07-20] MEDS ORDERED: MAGNESIUM SULFATE PMX 2GM/50ML 50 ML IV ONE (12:00)
[2020-07-20] MEDS ORDERED: SODIUM CHLORIDE FLUSH 10ML SYR IVF ONE (12:00)
[2020-07-20] MEDS ORDERED: methylPREDNISolone SOD SUCC 125 MG/2 ML IV ONE (12:00)
[2020-07-20] MEDS ORDERED: ALBUTEROL SULFATE 2.5 MG/3 ML NPPB ONE ×2 (12:00→13:30)
[2020-07-20 12:04] LABS: BASOPHILS % (AUTO) 0 % (0-1); EOSINOPHILS % (AUTO) 0 % (1-7); LYMPHOCYTES % (AUTO) 4 % (22-44); MEAN CORPUSCULAR HEMOGLOBIN 26.4 pg (27.0-34.8); MEAN CORPUSCULAR HGB CONC 30.9 g/dL (32.4-35.8); MEAN PLATELET VOLUME 7.6 fL (7.4-10.4); MONOCYTES % (AUTO) 17 % (2-9); NEUTROPHILS % (AUTO) 79 % (42-75); PLATELET COUNT 358 x10^3/uL (130-400); RED BLOOD COUNT 4.71 x10^6/uL (3.82-5.3); RED CELL DISTRIBUTION WIDTH 16.1 % (9.6-15.2)
[2020-07-20 12:05] LABS: MD NO
[2020-07-20 12:14] LABS: ALANINE AMINOTRANSFERASE 104 U/L (12-78); ALBUMIN 3.6 g/dL (3.4-5.0); ANION GAP 3 mmol/L (5-15); CALCIUM 9.6 mg/dL (8.5-10.1); CHLORIDE 87 mmol/L (98-107); CREATININE 1.05 mg/dL (0.55-1.02)
[2020-07-20 12:16] LABS: ALKALINE PHOSPHATASE 90 U/L (45-117); BILIRUBIN,TOTAL 0.9 mg/dL (0.2-1.0); TOTAL PROTEIN 7.8 g/dL (6.4-8.2)
--- NOTE | 2020-07-20 12:21 | NUR ---
RT BEDSIDE TO PLACE PT ON BIPAP.
[2020-07-20] MEDS ORDERED: CEFTRIAXONE PMX 1GM/50ML 50 ML IV ONE (12:30)
[2020-07-20] MEDS ORDERED: AZITHROMYCIN 500 MG in SODIUM CHLORIDE 0.9% 250 ML IV ONE (12:30)
[2020-07-20] MEDS ORDERED: CEFTRIAXONE PMX 1GM/50ML 50 ML ONE (12:33)
[2020-07-20] MEDS ORDERED: SODIUM CHLORIDE 0.9%, 500ML IVBOLUS ONE (13:00)
[2020-07-20] MEDS ORDERED: MORPHINE SULFATE 4 MG/ML, 1ML IVPush ONE (13:00)
[2020-07-20 13:04] LABS: FIO2 50 %
--- NOTE | 2020-07-20 13:21 | NUR ---
TASK RN: SECOND PIV PLACED. ABX STARTED AFTER 2 SETS BLOOD CX COLLECTED. RESP AT BEDSIDE FOR ASSESSMENT. MD AT BEDSIDE FOR ASSESSMENT. MD STATES PT AGREED TO BE INTUBATED IF NEEDED. REPORT GIVEN TO PRIMARY RN.
[2020-07-20 13:22] LABS: C-REACTIVE PROTEIN, QUANT 5.6 mg/dL (0.02-0.49)
[2020-07-20] MEDS ORDERED: MORPHINE SULFATE 4 MG/ML, 1ML ONE (13:45)
[2020-07-20] MEDS ORDERED: ACETAMINOPHEN 325 MG TABLET PO PRN (14:00)
[2020-07-20] MEDS ORDERED: DOCUSATE 100 MG CAPSULE PO PRN (14:00)
[2020-07-20] MEDS ORDERED: POLYETHYLENE GLYCOL 17 GM PACKET PO PRN (14:00)
[2020-07-20] MEDS ORDERED: ONDANSETRON 2MG/ML, 2ML IVPush PRN (14:00)
[2020-07-20 14:17] LABS: TROPONIN I 0.074 ng/mL (0.000-0.045)
--- NOTE | 2020-07-20 14:31 | NUR ---
PHONE REPORT MADE TO LENI MENA
--- NOTE | 2020-07-20 14:35 | NUR ---
GLASSES AND PAJAMA GOWN PLACED IN BELONGINGS BAG WITH NAME STICKER PLACED
[2020-07-20] MEDS: CEFTRIAXONE PMX 1GM/50ML 50 ML IV SCH (15:53)
[2020-07-20] MEDS: methylPREDNISolone SOD SUCC 40 MG/ML IVPush SCH ×2 (16:01→21:10)
[2020-07-20] MEDS: DOXYCYCLINE 100 MG in DEXTROSE 5% 250 ML IV SCH (16:27)
[2020-07-20] MEDS ORDERED: ALBUTEROL/IPRATROPIUM 2.5MG/0.5MG, 3 ML ONE (17:57)
[2020-07-20] MEDS: BUDESONIDE 0.5 MG/2 ML INHA NPPB SCH (19:00)
[2020-07-20 20:23] LABS: TROPONIN I 0.064 ng/mL (0.000-0.045)
[2020-07-20] MEDS: ALBUTEROL/IPRATROPIUM 2.5MG/0.5MG, 3 ML NPPB SCH (21:00)
[2020-07-20] MEDS: APIXABAN 5 MG TABLET PO SCH (21:10)
[2020-07-21] MEDS: BUDESONIDE 0.5 MG/2 ML INHA NPPB SCH ×2 (01:00→07:10)
[2020-07-21] MEDS: DOXYCYCLINE 100 MG in DEXTROSE 5% 250 ML IV SCH ×2 (02:27→16:22)
[2020-07-21] MEDS: methylPREDNISolone SOD SUCC 40 MG/ML IVPush SCH ×4 (02:27→19:59)
[2020-07-21] MEDS: ALBUTEROL/IPRATROPIUM 2.5MG/0.5MG, 3 ML NPPB SCH ×2 (03:00→07:10)
[2020-07-21 04:38] LABS: MEAN CORPUSCULAR HEMOGLOBIN 26.7 pg (27.0-34.8); MEAN CORPUSCULAR HGB CONC 31.5 g/dL (32.4-35.8); MEAN PLATELET VOLUME 8.3 fL (7.4-10.4); PLATELET COUNT 329 x10^3/uL (130-400); RED BLOOD COUNT 4.29 x10^6/uL (3.82-5.3)
[2020-07-21 05:35] LABS: ALBUMIN 3.2 g/dL (3.4-5.0)
[2020-07-21 05:39] LABS: ALANINE AMINOTRANSFERASE 104 U/L (12-78); ALKALINE PHOSPHATASE 77 U/L (45-117); BILIRUBIN,TOTAL 0.5 mg/dL (0.2-1.0); CREATININE 0.68 mg/dL (0.55-1.02)
[2020-07-21 06:04] LABS: CHLORIDE 88 mmol/L (98-107)
[2020-07-21 06:13] LABS: ANION GAP < 1 mmol/L (5-15)
[2020-07-21 06:21] LABS: MD YES
[2020-07-21 06:23] LABS: ANISOCYTOSIS 1+; LYMPH#(MANUAL) 0.23 x10^3/uL (1-3.4); LYMPHS% (MANUAL) 4 % (22-44); MONOS#(MANUAL) 0.12 x10^3/uL (0.3-2.7); MONOS% (MANUAL) 2 % (2-9); MYELOCYTES# (MANUAL) 0.06 x10^3/uL (0-0); MYELOCYTES% (MANUAL) 1 % (0-0); SEG#(MANUAL) 5.39 x10^3/uL (1.8-6.8); SEGS% (MANUAL) 93 % (42-75)
[2020-07-21 06:24] LABS: <PLATELET ESTIMATE> ADEQUATE; <PLT MORPHOLOGY> NORMAL PLT MORPH; HYPOCHROMIA 1+; POLYCHROMASIA 1+
[2020-07-21] MEDS ORDERED: PANTOPRAZOLE 40 MG IV IVPush SCH (07:30)
[2020-07-21] MEDS: APIXABAN 5 MG TABLET PO SCH ×2 (08:21→19:58)
[2020-07-21] MEDS: PANTOPRAZOLE 40 MG IV IVPush SCH (08:21)
[2020-07-21] MEDS: FLUOXETINE HCL 20 MG CAPSULE PO SCH (08:21)
[2020-07-21] MEDS: DILTIAZEM CD 180 MG CAP.ER.24H PO SCH (09:25)
[2020-07-21] MEDS ORDERED: LORazepam 1MG TABLET PO PRN (12:30)
[2020-07-21] MEDS: CEFTRIAXONE PMX 1GM/50ML 50 ML IV SCH (14:45)
[2020-07-21] MEDS: ALBUTEROL-IPRATROPIUM MDI INH INH SCH ×2 (15:24→19:59)
[2020-07-22] MEDS: DOXYCYCLINE 100 MG in DEXTROSE 5% 250 ML IV SCH ×2 (01:47→14:27)
[2020-07-22] MEDS: methylPREDNISolone SOD SUCC 40 MG/ML IVPush SCH ×3 (01:47→14:30)
[2020-07-22] MEDS: ALBUTEROL-IPRATROPIUM MDI INH INH SCH ×3 (02:00→14:26)
[2020-07-22] MEDS: PANTOPRAZOLE 40 MG IV IVPush SCH (09:04)
[2020-07-22] MEDS: FLUOXETINE HCL 20 MG CAPSULE PO SCH (09:04)
[2020-07-22] MEDS: DILTIAZEM CD 180 MG CAP.ER.24H PO SCH (09:04)
[2020-07-22] MEDS: APIXABAN 5 MG TABLET PO SCH ×2 (09:04→19:41)
[2020-07-22] MEDS: FLUTICASONE/VILANTEROL 200-25MCG/INH INH SCH (09:50)
[2020-07-22] MEDS: CEFTRIAXONE PMX 1GM/50ML 50 ML IV SCH (16:08)
[2020-07-22] MEDS ORDERED: AMIODARONE 150 MG in DEXTROSE 5% 100 ML IV ONE (18:00)
[2020-07-22] MEDS: FILTER 0.22 MICRON IV PRN (18:06)
[2020-07-22] MEDS: AMIODARONE 450 MG in DEXTROSE 5% 241 ML IV PRN (18:15)
[2020-07-22] MEDS ORDERED: ALBUTEROL-IPRATROPIUM MDI INH INH PRN (19:00)
[2020-07-22] MEDS: ALBUTEROL/IPRATROPIUM 2.5MG/0.5MG, 3 ML NPPB SCH (21:00)
[2020-07-23] MEDS: DOXYCYCLINE 100 MG in DEXTROSE 5% 250 ML IV SCH ×2 (01:44→14:26)
[2020-07-23] MEDS: AMIODARONE 450 MG in DEXTROSE 5% 241 ML IV PRN ×3 (03:56→22:42)
[2020-07-23] MEDS: FILTER 0.22 MICRON IV PRN (03:56)
[2020-07-23 04:36] LABS: BASOPHILS % (AUTO) 0 % (0-1); EOSINOPHILS % (AUTO) 0 % (1-7); LYMPHOCYTES % (AUTO) 1 % (22-44); MEAN CORPUSCULAR HEMOGLOBIN 26.6 pg (27.0-34.8); MEAN CORPUSCULAR HGB CONC 32.1 g/dL (32.4-35.8); MEAN PLATELET VOLUME 7.6 fL (7.4-10.4); MONOCYTES % (AUTO) 10 % (2-9); NEUTROPHILS % (AUTO) 89 % (42-75); PLATELET COUNT 307 x10^3/uL (130-400); RED BLOOD COUNT 4.22 x10^6/uL (3.82-5.3); RED CELL DISTRIBUTION WIDTH 16.2 % (9.6-15.2)
[2020-07-23 04:39] LABS: ALBUMIN 3.2 g/dL (3.4-5.0); CALCIUM 9.5 mg/dL (8.5-10.1); CHLORIDE 82 mmol/L (98-107)
[2020-07-23 04:42] LABS: ALANINE AMINOTRANSFERASE 103 U/L (12-78); ALKALINE PHOSPHATASE 66 U/L (45-117); BILIRUBIN,TOTAL 0.4 mg/dL (0.2-1.0); CREATININE 0.57 mg/dL (0.55-1.02); TOTAL PROTEIN 6.6 g/dL (6.4-8.2)
[2020-07-23 04:51] LABS: MD NO
[2020-07-23 04:53] LABS: ANION GAP 2 mmol/L (5-15)
[2020-07-23] MEDS: methylPREDNISolone SOD SUCC 40 MG/ML IVPush SCH ×2 (06:10→21:06)
[2020-07-23] MEDS: FLUOXETINE HCL 20 MG CAPSULE PO SCH (08:11)
[2020-07-23] MEDS: APIXABAN 5 MG TABLET PO SCH ×2 (08:11→21:06)
[2020-07-23] MEDS: FLUTICASONE/VILANTEROL 200-25MCG/INH INH SCH (08:12)
[2020-07-23] MEDS ORDERED: AMIODARONE 150 MG in DEXTROSE 5% 100 ML IV ONE (08:30)
[2020-07-23] MEDS: DILTIAZEM CD 180 MG CAP.ER.24H PO SCH (08:50)
[2020-07-23] MEDS: ALBUTEROL/IPRATROPIUM 2.5MG/0.5MG, 3 ML NPPB SCH ×4 (13:05→18:35)
[2020-07-23] MEDS: INSULIN LISPRO 100 UNITS/ML, PEN SQ-INSULIN SCH ×3 (13:39→21:06)
[2020-07-23] MEDS: CEFTRIAXONE PMX 1GM/50ML 50 ML IV SCH (13:45)
[2020-07-23 19:57] VITALS: BP 114/70
[2020-07-24 00:57] VITALS: BP 119/77
[2020-07-24] MEDS: ALBUTEROL/IPRATROPIUM 2.5MG/0.5MG, 3 ML NPPB SCH ×4 (02:47→20:30)
[2020-07-24] MEDS: DOXYCYCLINE 100 MG in DEXTROSE 5% 250 ML IV SCH ×2 (02:49→14:53)
[2020-07-24 05:43] LABS: CALCIUM 9.6 mg/dL (8.5-10.1); CHLORIDE 80 mmol/L (98-107); CREATININE 0.67 mg/dL (0.55-1.02)
[2020-07-24 06:02] LABS: ANION GAP < 1 mmol/L (5-15)
[2020-07-24] MEDS: methylPREDNISolone SOD SUCC 40 MG/ML IVPush SCH ×3 (06:31→21:33)
[2020-07-24] MEDS: AMIODARONE 450 MG in DEXTROSE 5% 241 ML IV PRN (06:48)
[2020-07-24] MEDS: APIXABAN 5 MG TABLET PO SCH ×2 (08:30→21:34)
[2020-07-24] MEDS: DILTIAZEM CD 180 MG CAP.ER.24H PO SCH (08:30)
[2020-07-24] MEDS: FLUOXETINE HCL 20 MG CAPSULE PO SCH (08:30)
[2020-07-24] MEDS: INSULIN LISPRO 100 UNITS/ML, PEN SQ-INSULIN SCH ×4 (08:31→21:53)
[2020-07-24] MEDS: FUROSEMIDE 40 MG/4 ML IV SCH ×2 (08:40→16:24)
[2020-07-24] MEDS: FLUTICASONE/VILANTEROL 200-25MCG/INH INH SCH (09:19)
[2020-07-24 12:56] VITALS: BP 111/76
[2020-07-24 14:06] LABS: CALCIUM 9.4 mg/dL (8.5-10.1); CHLORIDE 79 mmol/L (98-107)
[2020-07-24 14:10] LABS: CREATININE 0.62 mg/dL (0.55-1.02)
[2020-07-24] MEDS: CEFTRIAXONE PMX 1GM/50ML 50 ML IV SCH (14:13)
[2020-07-24 14:24] LABS: ANION GAP 2 mmol/L (5-15)
[2020-07-24] MEDS ORDERED: methylPREDNISolone SOD SUCC 125 MG/2 ML ONE (21:29)
[2020-07-24] MEDS: LORazepam 1MG TABLET PO PRN (21:34)
[2020-07-24] MEDS: AMIODARONE 200 MG TABLET PO SCH (21:34)
[2020-07-24] MEDS: GUAIFENESIN ER 600 MG TABLET PO SCH (21:34)
[2020-07-24 21:53] VITALS: BP 113/76
[2020-07-24 22:19] LABS: CHLORIDE 75 mmol/L (98-107); CREATININE 0.76 mg/dL (0.55-1.02)
[2020-07-24 23:29] LABS: ANION GAP 12 mmol/L (5-15)
[2020-07-25] MEDS: DOXYCYCLINE 100 MG in DEXTROSE 5% 250 ML IV SCH (02:13)
[2020-07-25] MEDS: ALBUTEROL/IPRATROPIUM 2.5MG/0.5MG, 3 ML NPPB SCH ×3 (02:50→08:00)
[2020-07-25] MEDS: methylPREDNISolone SOD SUCC 40 MG/ML IVPush SCH (03:34)
[2020-07-25 03:37] VITALS: BP 118/74
[2020-07-25 07:35] VITALS: BP 130/81
[2020-07-25] MEDS: INSULIN LISPRO 100 UNITS/ML, PEN SQ-INSULIN SCH ×4 (07:41→21:14)
[2020-07-25] MEDS: DILTIAZEM CD 180 MG CAP.ER.24H PO SCH (07:42)
[2020-07-25] MEDS: FUROSEMIDE 40 MG/4 ML IV SCH ×2 (07:42→16:46)
[2020-07-25] MEDS: GUAIFENESIN ER 600 MG TABLET PO SCH ×2 (07:42→21:02)
[2020-07-25] MEDS: methylPREDNISolone SOD SUCC 125 MG/2 ML IVPush SCH ×3 (07:42→21:02)
[2020-07-25] MEDS: AMIODARONE 200 MG TABLET PO SCH ×2 (07:42→21:02)
[2020-07-25] MEDS: FLUOXETINE HCL 20 MG CAPSULE PO SCH (07:42)
[2020-07-25] MEDS: APIXABAN 5 MG TABLET PO SCH ×2 (07:43→21:02)
[2020-07-25] MEDS: FLUTICASONE/VILANTEROL 200-25MCG/INH INH SCH (07:43)
[2020-07-25 07:56] LABS: CALCIUM 9.1 mg/dL (8.5-10.1); CHLORIDE 76 mmol/L (98-107); CREATININE 0.52 mg/dL (0.55-1.02)
[2020-07-25 08:15] LABS: ANION GAP < 0 mmol/L (5-15)
[2020-07-25] MEDS: LORazepam 1MG TABLET PO PRN (11:26)
[2020-07-25] MEDS ORDERED: ALBUTEROL-IPRATROPIUM MDI INH INH PRN (12:00)
[2020-07-25 14:35] VITALS: BP 108/67
[2020-07-25] MEDS: ALBUTEROL-IPRATROPIUM MDI INH INH SCH ×2 (16:46→22:00)
[2020-07-25 19:54] VITALS: BP 127/85
[2020-07-26 01:08] VITALS: BP 127/81
[2020-07-26] MEDS: methylPREDNISolone SOD SUCC 125 MG/2 ML IVPush SCH ×4 (03:23→20:24)
[2020-07-26] MEDS: ALBUTEROL-IPRATROPIUM MDI INH INH SCH ×4 (04:26→22:16)
[2020-07-26 07:40] VITALS: BP 126/85
[2020-07-26] MEDS: FLUTICASONE/VILANTEROL 200-25MCG/INH INH SCH (08:39)
[2020-07-26] MEDS: FUROSEMIDE 40 MG/4 ML IV SCH ×2 (08:40→16:24)
[2020-07-26] MEDS: INSULIN LISPRO 100 UNITS/ML, PEN SQ-INSULIN SCH ×4 (08:40→20:34)
[2020-07-26] MEDS: AMIODARONE 200 MG TABLET PO SCH ×2 (08:41→20:24)
[2020-07-26] MEDS: APIXABAN 5 MG TABLET PO SCH ×2 (08:41→20:24)
[2020-07-26] MEDS: FLUOXETINE HCL 20 MG CAPSULE PO SCH (08:41)
[2020-07-26] MEDS: GUAIFENESIN ER 600 MG TABLET PO SCH ×2 (08:41→20:24)
[2020-07-26] MEDS: DILTIAZEM CD 180 MG CAP.ER.24H PO SCH (08:42)
[2020-07-26 16:15] VITALS: BP 121/62
[2020-07-26 20:11] VITALS: BP 103/68
[2020-07-26] MEDS: LORazepam 1MG TABLET PO PRN (21:38)
[2020-07-27 00:58] VITALS: BP 122/74
[2020-07-27] MEDS: ALBUTEROL-IPRATROPIUM MDI INH INH SCH ×4 (03:26→22:54)
[2020-07-27] MEDS: methylPREDNISolone SOD SUCC 125 MG/2 ML IVPush SCH ×4 (03:26→21:31)
[2020-07-27 04:58] LABS: BASOPHILS % (AUTO) 0 % (0-1); EOSINOPHILS % (AUTO) 0 % (1-7); LYMPHOCYTES % (AUTO) 1 % (22-44); MEAN CORPUSCULAR HEMOGLOBIN 25.4 pg (27.0-34.8); MEAN CORPUSCULAR HGB CONC 30.8 g/dL (32.4-35.8); MEAN PLATELET VOLUME 7.8 fL (7.4-10.4); MONOCYTES % (AUTO) 6 % (2-9); NEUTROPHILS % (AUTO) 93 % (42-75); PLATELET COUNT 303 x10^3/uL (130-400); RED BLOOD COUNT 4.56 x10^6/uL (3.82-5.3); RED CELL DISTRIBUTION WIDTH 16.4 % (9.6-15.2)
[2020-07-27 05:07] LABS: ALANINE AMINOTRANSFERASE 65 U/L (12-78); ALBUMIN 3.1 g/dL (3.4-5.0); CALCIUM 8.8 mg/dL (8.5-10.1); CHLORIDE 71 mmol/L (98-107); CREATININE 0.48 mg/dL (0.55-1.02)
[2020-07-27 05:09] LABS: ALKALINE PHOSPHATASE 53 U/L (45-117); BILIRUBIN,TOTAL 0.7 mg/dL (0.2-1.0); TOTAL PROTEIN 5.9 g/dL (6.4-8.2)
[2020-07-27 05:48] LABS: MD SCAN
[2020-07-27 06:08] LABS: ANION GAP < 0 mmol/L (5-15)
[2020-07-27] MEDS ORDERED: POTASSIUM CHLORIDE 20 MEQ TAB.ER.PRT PO ONE (07:00)
[2020-07-27 08:14] VITALS: BP 146/80
[2020-07-27] MEDS: AMIODARONE 200 MG TABLET PO SCH ×2 (08:16→21:00)
[2020-07-27] MEDS: DILTIAZEM CD 180 MG CAP.ER.24H PO SCH (08:16)
[2020-07-27] MEDS: FLUOXETINE HCL 20 MG CAPSULE PO SCH (08:16)
[2020-07-27] MEDS: GUAIFENESIN ER 600 MG TABLET PO SCH ×2 (08:17→21:00)
[2020-07-27] MEDS: FUROSEMIDE 40 MG/4 ML IV SCH (08:17)
[2020-07-27] MEDS: APIXABAN 5 MG TABLET PO SCH ×2 (08:17→21:00)
[2020-07-27] MEDS: FLUTICASONE/VILANTEROL 200-25MCG/INH INH SCH (08:20)
[2020-07-27] MEDS: INSULIN LISPRO 100 UNITS/ML, PEN SQ-INSULIN SCH ×4 (08:24→22:54)
[2020-07-27] MEDS: LORazepam 1MG TABLET PO PRN ×2 (10:35→23:46)
[2020-07-27] MEDS: POTASSIUM CHLORIDE 20 MEQ TAB.ER.PRT PO SCH ×2 (10:48→15:46)
[2020-07-27 14:30] VITALS: BP 105/61
[2020-07-27 21:09] VITALS: BP 122/72
[2020-07-28] MEDS: methylPREDNISolone SOD SUCC 125 MG/2 ML IVPush SCH (04:23)
[2020-07-28] MEDS: ALBUTEROL-IPRATROPIUM MDI INH INH SCH (04:23)
[2020-07-28] MEDS ORDERED: LORazepam 2 MG/ML, 1ML ONE (06:07)
[2020-07-28] MEDS ORDERED: MORPHINE SULFATE 4 MG/ML, 1ML IVPush PRN (06:30)
[2020-07-28] MEDS ORDERED: MORPHINE SULFATE 4 MG/ML, 1ML IV ONE (06:30)
[2020-07-28] MEDS ORDERED: ONDANSETRON 2MG/ML, 2ML IVPush PRN (06:30)
[2020-07-28] MEDS ORDERED: LORazepam 2 MG/ML, 1ML IV ONE (06:30)
[2020-07-28] MEDS ORDERED: ATROPINE OPHTH SOLN 1%, 5ML PO PRN (06:30)
[2020-07-28] MEDS ORDERED: LORazepam 2 MG/ML, 1ML IVPush PRN ×2 (06:30)
[2020-07-28] MEDS: INSULIN LISPRO 100 UNITS/ML, PEN SQ-INSULIN SCH (07:00)
== END 2020-07-28 09:14 | disposition expired | DRG 871 ==
LOC: ED 11:43 → EDIP 13:19 → CCU 14:47 → 5SO 07-23 17:38 → CCU 07-27 23:34
PROVIDERS: ADMIT Internal Medicine; ATTEND Internal Medicine
PROC: 5A09357 Assistance with Respiratory Ventilation, Less than 24 Consecutive Hours, Continuous Positive Airway Pressure (ICD-10-PCS; principal; 2020-07-20)
PROC: 5A09357 Assistance with Respiratory Ventilation, Less than 24 Consecutive Hours, Continuous Positive Airway Pressure (ICD-10-PCS; 2020-07-21)
PROC: 5A09357 Assistance with Respiratory Ventilation, Less than 24 Consecutive Hours, Continuous Positive Airway Pressure (ICD-10-PCS; 2020-07-28)
DX: A41.9 Sepsis, unspecified organism (principal); G93.41 Metabolic encephalopathy; J69.0 Pneumonitis due to inhalation of food and vomit; J96.21 Acute and chronic respiratory failure with hypoxia; J96.22 Acute and chronic respiratory failure with hypercapnia; D68.69 Other thrombophilia; E87.1 Hypo-osmolality and hyponatremia; I48.20 Chronic atrial fibrillation, unspecified; I50.32 Chronic diastolic (congestive) heart failure; I38 Endocarditis, valve unspecified; B19.20 Unspecified viral hepatitis C without hepatic coma; F17.210 Nicotine dependence, cigarettes, uncomplicated; I11.0 Hypertensive heart disease with heart failure; I27.20 Pulmonary hypertension, unspecified; I45.10 Unspecified right bundle-branch block; R73.9 Hyperglycemia, unspecified; R74.01 Elevation of levels of liver transaminase levels; J43.9 Emphysema, unspecified; Z20.828 Contact with and (suspected) exposure to other viral communicable diseases; Z79.01 Long term (current) use of anticoagulants; Z82.49 Family history of ischemic heart disease and other diseases of the circulatory system; Z90.710 Acquired absence of both cervix and uterus; Z99.81 Dependence on supplemental oxygen
CPT/HCPCS: 36415; 36600; 84145; J7613; J7626; 71045; 80048; 80053; 82728; 82803; 82962; 83036; 83605; 83615; 84484; 85025; 85520; 86140; 87040; 87081; 93005; 94640; 94660; G0378; J0456; J0696; J1940; J2405; J7060; C9113; J0282; J1815; J2060; J2270; J2920; J2930; J3475; J7040; J7050; U0003